=== PATIENT | female | born 1990 | race Caucasian/White ===

== ENCOUNTER 2016-08-21 20:30 | Emergency (ER) | payer SELFPAY ==
[~2016-08-21] VITALS: Ht 157.5 cm; Wt 56.7 kg
[~2016-08-21 20:30] MED LIST: ALPR1T PO; AMX500CIP PO; ARIP10TA2 PO; AZIT-21 PO; CEFD300C3 PO; CEPH500C PO; CLIN300C3 PO; CLON1TAB2 PO; CPR500T PO; DCS100C PO; DEPO SHOT; DICY10CA26 PO; DOXY-13 PO; DOXY100C2 PO; ESCI5TAB PO; ESCT10T PO; HYDR-3714 PO; HYDR-3720 PO; HYDR1TAB PO; IBP800T PO; IBUP800T26 PO; Ibuprofen PO; KETO-22 PO; LEVO500T69 PO; LEVO750T6 PO; LORA0.5T34 GT; METH4TAB PO; NAPR-243 PO; NITR-65 PO; NITR100C3 PO; ONDA-43 PO; OXYC-12 PO; OXYC-272 PO; PHEN100T26 PO; PHEN200T16 PO; PHEN200T27 PO; PRD20T PO; PREN1TAB71 PO; RNT150T PO; SRTR100T PO; SULF1TAB38 PO; TRM50T PO; ZLP5T PO; [UNRECOGNIZED DRUG - CODE] PO; [UNRECOGNIZED DRUG - OTHER]; [UNRECOGNIZED DRUG - REMARK]
--- OUTSIDE RECORDS SUMMARY | 2016-08-21 20:38 | XMS REPORT ---
Author Author Celi Bautista [facility] eClinicalWorks Address Unknown Phone Unavailable Care Team Providers Care Job Lithographer Name Role Phone Celi Bautista CP Unavailable Allergies No Known Allergies Problems Problem Type Condition Code Onset Dates Condition Status Problem Methamphetamine abuse F15.10 Active Problem MDD (major depressive disorder), recurrent episode F33.9 Active Problem Screening for STD (sexually transmitted disease) Z11.3 Active Problem History of seizures as a child Z86.69 Active Problem Contraceptive management Z30.9 Active Problem Abnormal Pap smear of cervix R87.619 Active Problem Wheezing R06.2 Active Problem Bipolar II disorder F31.81 Active Problem Anxiety F41.9 Active Problem Alcohol withdrawal F10.239 Active Problem Seizures R56.9 Active Medications Medication Code System Code Instructions Start Date End Date Status Dosage Ativan [facility] [id number] 1 mg Orally tid May 26, 2016 1 tablet as needed Results No Known Results Summary Purpose eClinicalWorks Submission
[2016-08-21 21:43] VITALS: BP 110/77
[2016-08-21] MEDS ORDERED: NS IV 1000 ML 1,000 ML IV ONE (22:00)
[2016-08-21] MEDS ORDERED: LEVETIRACETAM 500 MG (KEPPRA) TAB PO ONE (22:15)
[2016-08-21] MEDS ORDERED: LORazepam INJ 2 MG/ML (ATIVAN) VIAL IVP ONE (22:15)
[2016-08-21 22:17] LABS: BILIRUBIN,URINE NEGATIVE (NEGATIVE); KETONES,URINE NEGATIVE (NEGATIVE); LEUKOCYTE ESTERASE ,URINE 3+ (NEGATIVE); NITRITE,URINE NEGATIVE (NEGATIVE); PH,URINE 7 (5-9); PROTEIN,URINE 1+ (NEGATIVE); UROBILINOGEN,URINE NORMAL (NORMAL)
--- NOTE | 2016-08-21 22:23 | ED Psychosocial ---
General Chief Complaint: Substance Abuse Stated Complaint: SEIZURES, DETOX Nursing Triage Note: pt reports she is a drug addict and an alcoholic. Pt states she stopped doing meth, heroin, and benzos along with ETOH 4 days ago. Pt is reporting that she has had 2 seizures related to withdrawl. History of Present Illness Time seen by provider: 21:45 Initial Comments Patient is currently doing inpatient treatment for drug and alcohol cessation at [facility]. She reports using meth, heroin, benzodiazepines and alcohol (vodka). On 08/17/16 she attempted to overdose with meth and heroin, she went to [facility] on . She reports two withdrawal seizures today at the [facility]: 1745 and 1900. Hx of epilepsy. She reports anxiety and depression. Timing/Duration: getting worse Associated Symptoms: anxiety, impaired concentration Denies suicidal thoughts. Allergies and Home Medications Allergies Coded Allergies: tramadol (Verified Allergy, Severe, HIVES, 01/19/14) Penicillins (Unverified Allergy, Mild, 01/21/09) Sulfa (Sulfonamide Antibiotics) (Unverified Allergy, Unknown, 01/19/14) Home Medications Chlordiazepoxide HCl 25 Mg Capsule #20 25 MG PO QID day 1: 1 every 4 hours day 2: 1 every 6 hours day 3: 1 every 8 hours day 4: 1 every 12 hours then prn every 12 hours Prescribed by: JEROMY MUNOZ on 08/21/162231 Escitalopram Oxalate 5 Mg Tablet 2 EACH PO DAILY (Reported) Hydrocodone Bit/Acetaminophen 1 Each Tablet #16 1 TAB PO PRN (Reported) Ibuprofen 800 Mg Tablet #20 1 TAB PO Q8H PRN PRN PAIN (Reported) Levetiracetam 500 Mg Tablet #30 500 MG PO BID Prescribed by: JEROMY MUNOZ on 08/21/162231 Levofloxacin 500 Mg Tab #7 1 EACH PO DAILY Prescribed by: HANSEL VARGAS on 06/17/142253 Prednisone 20 Mg Tab #4 20 MG PO DAILY Prescribed by: LYSSA FIGUEROA on 06/06/144 Constitutional: see HPI dizziness EENTM: no symptoms reported see HPI Respiratory: no symptoms reported see HPI Cardiovascular: no symptoms reported see HPI Gastrointestinal: no symptoms reported see HPI Genitourinary: no symptoms reported see HPI Musculoskeletal: see HPI muscle cramps (secondary to seizure) muscle weakness Skin: no symptoms reported see HPI Psychiatric/Neurological: No Symptoms Reported See HPI All Other Systems Reviewed Negative Unless Noted: Yes Past Eldkdqs-Vaahic-Mkzsht Hx Patient Social History Alcohol Use: Regular Use Recreational Drug Use: Yes (meth, benzo, heroin) Smoking Status: Current Everyday Smoker Type Used: Cigarettes Recent Foreign Travel: No Contact w/Someone Who Travel: No Recent Infectious Disease Expo: No Recent Hopitalizations: No Physical Abuse Screen: No Sexual Abuse: No Immunizations Up To Date Tetanus Booster (TDap): Less than 5yrs PED Vaccines UTD: Yes Date of Pneumonia Vaccine: Jun 06, 2013 Date of Influenza Vaccine: Jun 06, 2013 Seasonal Allergies Seasonal Allergies: No Surgeries HX Surgeries: Yes (T&A, jaw) Surgeries: Appendectomy, Section, Tonsillectomy Respiratory Hx Respiratory Disorders: No Respiratory Disorders: Asthma Cardiovascular Hx Cardiac Disorders: Yes Cardiac Disorders: Palpitations Neurological Hx Neurological Disorders: No Neurological Disorders: Headaches /Migraines, Seizure Disorder Reproductive System Hx Reproductive Disorders: No Sexually Transmitted Disease: No Genitourinary Hx Genitourinary Disorders: Yes Genitourinary Disorders: UTI-Chronic Gastrointestinal Hx Gastrointestinal Disorders: No Musculoskeletal Hx Musculoskeletal Disorders: No Endocrine Hx Endocrine Disorders: No HEENT HX ENT Disorders: No Cancer Hx Cancer: No Psychosocial Hx Psychiatric Problems: Yes Behavioral Health Disorders: Sleep Difficulties, Anxiety, Bipolar, Depression Integumentary HX Skin/Integumentary Disorder: No Blood Transfusions Hx Blood Disorders: Yes (THROMBOCYTOPENIA) Adverse Reaction to a Blood Tr: Yes (?PLATLETS/BLOOD) Family Medical History Family Medial History: Arthritis GRANDPARENTS (MATERNAL GRANDMOTHER) Diabetes mellitus 19 MOTHER GRANDPARENTS (MATERNAL GRANDMOTHER) Hypertension 19 MOTHER GRANDPARENTS (MATERNAL GRANDMOTHER) No Family History of: AIDS Abdominal aortic aneurysm Robert's disease Alcoholism Alzheimer's disease Aphasia Asthma Cancer of mouth Cardiovascular disease Cataracts Colon cancer Completed stroke Congenital disease Congenital heart disease Coronary thrombosis Cystic fibrosis Deafness or hearing loss Dementia Drug abuse Dysphasia Fibrocystic disease of breast Gastroenteritis Glaucoma Headache disorder Hypercholesterolemia Infertility Kidney disease Myocardial infarction Neoplasm Osteoporosis Parkinson's disease Prostate cancer Psychosocial problem Respiratory disorder Seizure disorder Severe allergy Thyroid disease Tuberculosis Visual disorder Physical Exam Vital Signs Vital Sign - Last 12Hours 08/21/16 21:43 Temp 97.2 Pulse 98 Resp 18 B/P 110/77 Pulse Ox 98 Capillary Refill : Less Than 3 Seconds General Appearance: WD/WN no apparent distress HEENT: PERRL/EOMI normal ENT inspection TMs normal pharynx normal Neck: non-tender full range of motion supple normal inspection Respiratory: chest non-tender lungs clear normal breath sounds no respiratory distress no accessory muscle use Cardiovascular: normal peripheral pulses regular rate, rhythm no edema no murmur Gastrointestinal: normal bowel sounds non tender soft no organomegaly no pulsatile mass Extremities: normal range of motion non-tender normal inspection no pedal edema no calf tenderness normal capillary refill Neurologic/Psychiatric: no motor/sensory deficits alert normal mood/affect oriented x 3 Appearance/Memory: appropriate appearance appropriate insight neat Behavior/Eye Contact: cooperative good eye contact normal speech Thoughts/Hallucinations: normal thought pattern no apparent hallucination Skin: normal color warm/dry other (track villatoro bilat arms, no signs of infection) Lymphatic: no adenopathy Progress/Results/Core Measures Results/Orders Lab Results Laboratory Tests Test 08/21/16 22:10 08/21/16 22:22 Range/Units Ur Tricyclic Antidepressants Screen NEGATIVE NEGATIVE Urine Amorphous Sediment FEW JUANITA URATES H /LPF Urine Amphetamines Screen NEGATIVE NEGATIVE Urine Bacteria FEW H /HPF Urine Barbiturates Screen NEGATIVE NEGATIVE Urine Benzodiazepines Screen NEGATIVE NEGATIVE Urine Bilirubin NEGATIVE NEGATIVE Urine Cannabinoids Screen NEGATIVE NEGATIVE Urine Casts NONE /LPF Urine Clarity SLIGHTLY CLOUDY Urine Cocaine Screen NEGATIVE NEGATIVE Urine Color YELLOW Urine Crystals NONE /LPF Urine Culture Indicated YES Urine Glucose (UA) NEGATIVE NEGATIVE Urine Ketones NEGATIVE NEGATIVE Urine Leukocyte Esterase 3+ H NEGATIVE Urine Methadone Screen NEGATIVE NEGATIVE Urine Methamphetamines Screen NEGATIVE NEGATIVE Urine Mucus NEGATIVE /LPF Urine Nitrite NEGATIVE NEGATIVE Urine Opiates Screen NEGATIVE NEGATIVE Urine Oxycodone Screen NEGATIVE NEGATIVE Urine Phencyclidine Screen NEGATIVE NEGATIVE Urine Propoxyphene Screen NEGATIVE NEGATIVE Urine Protein 1+ H NEGATIVE Urine RBC NONE /HPF Urine RBC (Auto) 1+ H NEGATIVE Urine Specific [place] 1.010 L 1.016-1.022 Urine Squamous Epithelial Cells 10-25 H /HPF Urine Urobilinogen NORMAL NORMAL MG/DL Urine WBC 25-50 H /HPF Urine pH 7 5-9 Alanine Aminotransferase (ALT/SGPT) 31 0-55 U/L Albumin 3.9 3.2-4.5 G/DL Alkaline Phosphatase 95 40-136 U/L Anion Gap 10 5-14 MMOL/L Aspartate Amino Transf (AST/SGOT) 28 5-34 U/L BUN/Creatinine Ratio 21 Basophils # (Auto) 0.1 0.0-0.1 10^3/uL Basophils (%) (Auto) 1 0-10 % Blood Urea Nitrogen 15 7-18 MG/DL Calcium Level 8.9 8.5-10.1 MG/DL Carbon Dioxide Level 22 21-32 MMOL/L Chloride Level 107 98-107 MMOL/L Creatinine 0.70 0.60-1.30 MG/DL Eosinophils # (Auto) 0.3 0.0-0.3 10^3/uL Eosinophils (%) (Auto) 3 0-10 % Estimat Glomerular Filtration Rate > 60 Glucose Level 85 70-105 MG/DL Hematocrit 40 35-52 % Hemoglobin 13.2 11.5-16.0 G/DL Lymphocytes # (Auto) 3.9 1.0-4.0 X 10^3 Lymphocytes (%) (Auto) 37 12-44 % Mean Corpuscular Hemoglobin 28 25-34 PG Mean Corpuscular Hemoglobin Concent 33 32-36 G/DL Mean Corpuscular Volume 85 80-99 FL Mean Platelet Volume 7.4-10.4 FL Monocytes # (Auto) 0.9 0.0-1.0 X 10^3 Monocytes (%) (Auto) 8 0-12 % Neutrophils # (Auto) 5.5 1.8-7.8 X 10^3 Neutrophils (%) (Auto) 52 42-75 % Platelet Count 180 130-400 10^3/uL Potassium Level 4.8 3.6-5.0 MMOL/L Red Blood Count 4.64 4.35-5.85 10^6/uL Red Cell Distribution Width 14.1 10.0-14.5 % Serum Alcohol < 10 <10 MG/DL Sodium Level 139 135-145 MMOL/L Total Bilirubin 0.2 0.1-1.0 MG/DL Total Protein 7.5 6.4-8.2 G/DL White Blood Count 10.5 4.3-11.0 10^3/uL My Orders Orders-JEROMY MUNOZ Saline Lock/Iv-Start (08/21/16 22:00) Ns Iv 1000 Ml (Sodium Chloride 0.9%) (08/21/16 22:00) Alcohol (08/21/16 22:00) Cbc With Automated Diff (08/21/16 22:00) Comprehensive Metabolic Panel (08/21/16 22:00) Drug Screen Stat (Urine) (08/21/16 22:00) Ua Culture If Indicated (08/21/16 22:00) Ekg Tracing (08/21/16 22:00) Levetiracetam Tablet (Keppra Tablet) (08/21/16 22:15) Lorazepam Injection (Ativan Injection) (08/21/16 22:15) Urine Culture (08/21/16 22:10) Diazepam Injection (Valium Injection) (08/21/16 22:31) Medications Given in ED Current Medications Medications Dose Ordered Sig/Robb Route Start Time Stop Time Status Last Admin Dose Admin Diazepam 10 mg STK-MED ONCE .ROUTE 08/21/16 22:31 08/21/16 22:38 DC 08/21/16 22:40 10 MG Levetiracetam 500 mg ONCE ONCE PO 08/21/16 22:15 08/21/16 22:16 DC 08/21/16 22:28 500 MG Lorazepam 2 mg ONCE ONCE IVP 08/21/16 22:15 08/21/16 22:16 DC 08/21/16 22:28 2 MG Sodium Chloride 1,000 ml @ 0 mls/hr Q0M ONCE IV 08/21/16 22:00 08/21/16 22:03 DC 08/21/16 22:24 0 MLS/HR Vital Signs/I&O Vital Sign - Last 12Hours 08/21/16 21:43 Temp 97.2 Pulse 98 Resp 18 B/P 110/77 Pulse Ox 98 Blood Pressure Mean: 88 Point of Care Testing Urine -Bedside: Negative Progress Note : Time: 22:00 Progress Note Initial evaluation completed, will obtain labs UA urine drug screen alcohol level and EKG. Ativan 2 mg IV for anxiety and Keppra 500 mg. NS IV for hydration. Patient reports she had Librium in the past and for acute withdrawal symptoms. 2229 Labs and EKG all essentially normal. 2234 Called to room for seizure activity. Eyes twitching, occasional shaking in arms, no muscle rigidity and no spasms in legs. No post-ictal state. Slight confusion after. Valium 10 mg IV. 2249 Called to room for "seizure" explained to patient and ATC director, these are tremors from withdrawal and not seizure activity. Could verbally talk patient into calming down and the eye twitching/shaking stopped. Encouraged her to rest and let medication help her relax. 2315 Patient sleeping, in no distress. 2330 Patient awakens easily, alert. Denies anxiety or other symptoms at this time. Staff from [facility] left hospital. Called [facility] to notify she is ready for discharge. Patient's boyfriend came to see her, she became hostile that he wasn' t allowed to see her immediately. She removed her IV and walked out of her exam room. Calmed patient and assured her that he could visit her. Compressive dressing applied at IV site. 2335 Boyfriend in room visiting, patient demanding to go outside to smoke. Stressed that she can't do this until she is discharged. Patient agreeable. 2350 Patient walked out of exam room to waiting room, attempted to talk to patient, she said she needed to go out for a cigarette. Encouraged patient to come back into her exam room, get departure paperwork/Rx, then she could leave and smoke. Patient's boyfriend attempted to convince her to finish visit. She refused and said "fuck this place, I'm out of here" and stormed out of door. 2354 Spoke to Rosa from [facility], explained patient left AMA. ECG EKG : EKG Time: 22:22 Rate: 92 Rhythm: Normal Sinus Intervals: Normal ECG Comparisson: No Previous ECG Available Comment Reviewed with Dr. Thompson, agreed with interpretation. Departure Impression Impression: Primary Impression: Drug abuse Additional Impressions: Alcohol abuse ALCOHOL DEPENDENCE WITH WITHDRAWAL, UNCOMPLICATED Disposition: 01 HOME, SELF-CARE Condition: Against Medical Advice Departure-Patient Inst. Decision time for Depature: 23:00 Referrals: [facility] (PCP/Family) Primary Care Physician Patient Instructions: ALCOHOL AND SUBSTANCE ABUSE, Alcohol Withdrawal, Drug Abuse and Drug Addiction (DC), Drug Withdrawal (DC) Add. Discharge Instructions: All discharge instructions reviewed with patient and/or family. Voiced understanding. Take medications as prescribed. Continue therapy at [facility]. Return to Emergency Dept for seizures. Establish care with Primary Care Provider Scripts Levetiracetam (Keppra)500 Mg [id number] Mg PO BID #30 TAB Ref 1 Prov:JEROMY MUNOZ 08/21/16 Chlordiazepoxide HCl 25 Mg [id number] Mg PO QID #20 CAP Ref 0 day 1: 1 every 4 hours day 2: 1 every 6 hours day 3: 1 every 8 hours day 4: 1 every 12 hours then prn every 12 hours Prov:JEROMY MUNOZ 08/21/16 JEROMY MUNOZ Aug 21, 2016 22:23
[2016-08-21 22:28] LABS: WBC,URINE 25-50 /HPF
[2016-08-21 22:29] LABS: BASOPHILS # (AUTO) 0.1 10^3/uL (0.0-0.1); BASOPHILS % (AUTO) 1 % (0-10); EOSINOPHILS # (AUTO) 0.3 10^3/uL (0.0-0.3); EOSINOPHILS % (AUTO) 3 % (0-10); LYMPHOCYTES # (AUTO) 3.9 X 10^3 (1.0-4.0); LYMPHOCYTES % (AUTO) 37 % (12-44); MEAN CORPUSCULAR HEMOGLOBIN 28 PG (25-34); MEAN CORPUSCULAR HGB CONC 33 G/DL (32-36); MEAN CORPUSCULAR VOLUME 85 FL (80-99); MONOCYTES # (AUTO) 0.9 X 10^3 (0.0-1.0); MONOCYTES % (AUTO) 8 % (0-12); NEUTROPHILS # (AUTO) 5.5 X 10^3 (1.8-7.8); NEUTROPHILS % (AUTO) 52 % (42-75); PLATELET COUNT 180 10^3/uL (130-400); RED BLOOD COUNT 4.64 10^6/uL (4.35-5.85); RED CELL DISTRIBUTION WIDTH 14.1 % (10.0-14.5); WHITE BLOOD COUNT 10.5 10^3/uL (4.3-11.0)
[2016-08-21] MEDS ORDERED: DIAZEPAM INJ 10 MG/2 ML (VALIUM) SYR ONE (22:31)
[2016-08-21] MEDS ORDERED: CHLO25CA10 PO (22:32)
[2016-08-21] MEDS ORDERED: LEVE500T99 PO (22:32)
[2016-08-21 22:46] LABS: ALANINE AMINOTRANSFERASE 31 U/L (0-55); ALBUMIN 3.9 G/DL (3.2-4.5); ANION GAP 10 MMOL/L (5-14); ASPARTATE AMINO TRANSFERASE 28 U/L (5-34); BILIRUBIN,TOTAL 0.2 MG/DL (0.1-1.0); BLOOD UREA NITROGEN 15 MG/DL (7-18); BUN/CREATININE RATIO 21; CALCIUM 8.9 MG/DL (8.5-10.1); CARBON DIOXIDE 22 MMOL/L (21-32); CHLORIDE 107 MMOL/L (98-107); GFR ESTIMATED > 60; GLUCOSE 85 MG/DL (70-105); POTASSIUM 4.8 MMOL/L (3.6-5.0); SODIUM 139 MMOL/L (135-145); TOTAL PROTEIN 7.5 G/DL (6.4-8.2)
[2016-08-21 22:51] LABS: ALCOHOL < 10 MG/DL (<10)
== END 2016-08-21 23:50 | disposition left against medical advice (07) ==
LOC: EDUNIT# 20:30 → ER 20:34
DX: F10.239 Alcohol dependence with withdrawal, unspecified (principal); F15.10 Other stimulant abuse, uncomplicated; G40.909 Epilepsy, unspecified, not intractable, without status epilepticus; F41.9 Anxiety disorder, unspecified; Z79.899 Other long term (current) drug therapy
CPT/HCPCS: 36415; 80053; 80306; 80320; 81000; 84703; 85025; 87088; 87186; 93005; 96361; 96374; 96375

== ENCOUNTER 2016-08-22 14:40 | Emergency (ER) | payer SELFPAY ==
[~2016-08-22] VITALS: Ht 162.6 cm; Wt 54.4 kg
[~2016-08-22 14:40] MED LIST changes: +CHLO25CA10 PO; +LEVE500T99 PO
[2016-08-22 14:51] VITALS: BP 92/70
== END 2016-08-22 18:41 | disposition left against medical advice (07) ==
LOC: EDUNIT# 14:40 → ER 14:41
DX: R56.9 Unspecified convulsions (principal); Z53.21 Procedure and treatment not carried out due to patient leaving prior to being seen by health care provider
CPT/HCPCS: 99283